=== PATIENT | female | born 2005 | race Hispanic/Latino ===

== ENCOUNTER 2024-11-16 13:45 | Emergency (ER) | payer SELFPAY ==
[~2024-11-16] VITALS: Ht 157.5 cm; Wt 135.2 kg
[2024-11-16] MEDS: FAMOTIDINE 20MG VIAL IV STA (14:23)
[2024-11-16] MEDS: LACTATED RINGERS 1000ML 1,000 ML IV ONE (14:23)
[2024-11-16] MEDS: ondanSETRON 4MG INJ IVP STA (14:23)
[2024-11-16 14:31] LABS: BASOPHILS # (AUTO) 0.02 K/uL (0.00-0.20); BASOPHILS % (AUTO) 0.2 % (0.0-5.0); EOSINOPHILS # (AUTO) 0.07 K/uL (0.00-0.70); EOSINOPHILS % (AUTO) 0.8 % (0.0-8.0); HEMATOCRIT 41.3 % (36-48); IMMATURE GRANULOCYTE ABSOLUTE 0.03 K/uL (0-1); LYMPHOCYTES # (AUTO) 2.2 K/uL (1.0-4.8); LYMPHOCYTES % (AUTO) 25.1 % (21.0-51.0); MEAN CORPUSCULAR HEMOGLOBIN 29.8 pg (27.0-33.0); MEAN CORPUSCULAR HGB CONC 34.4 g/dL (32.0-36.0); MEAN CORPUSCULAR VOLUME 86.8 fL (80-100); MONOCYTES # (AUTO) 0.8 K/uL (0.1-1.0); MONOCYTES % (AUTO) 9.1 % (3.0-13.0); NEUTROPHILS # (AUTO) 5.6 K/uL (1.8-7.7); NEUTROPHILS % (AUTO) 64.5 % (40.0-77.0); PLATELET COUNT (AUTO) 254 K/uL (130-400); RED BLOOD CELL COUNT(AUTO) 4.76 MIL/uL (4.00-5.50); RED CELL DISTRIBUTION WIDTH 11.6 % (11.0-15.5); WHITE BLOOD COUNT (AUTO) 8.7 K/uL (4.8-10.8)
[2024-11-16 14:43] LABS: CREATININE 0.8 mg/dL (0.5-1.0)
[2024-11-16 14:47] LABS: ALBUMIN 3.6 g/dL (3.5-5.0); BILIRUBIN,DIRECT 0.1 mg/dL (0.0-0.3); BILIRUBIN,TOTAL 0.4 mg/dL (0.2-1.0); TOTAL PROTEIN, SERUM 7.2 g/dL (6.0-8.3)
[2024-11-16 15:01] LABS: APPEARANCE,URINE CLEAR (CLEAR); BILIRUBIN,URINE NEGATIVE (NEGATIVE); COLOR,URINE YELLOW (YELLOW); GLUCOSE, URINE (UA) NEGATIVE (NEGATIVE); KETONES,URINE 5 mg/dL (NEGATIVE); LEUKOCYTE ESTERASE ,URINE NEGATIVE Leu/uL (NEGATIVE); NITRATE,URINE NEGATIVE (NEGATIVE); OCCULT BLOOD,URINE NEGATIVE (NEGATIVE); PH,URINE 5.5 (5.0-8.0); PROTEIN,URINE 20 mg/dL (NEGATIVE)
[2024-11-16 15:03] LABS: ADD UA MICROSCOPIC YES; HCG,QUALITATIVE URINE NEGATIVE (NEGATIVE)
[2024-11-16 15:06] LABS: BACTERIA,URINE RARE /HPF (None Seen); MUCUS,URINE FEW LPF (None Seen); SQUAMOUS EPITHELIAL CELL,UR FEW /HPF (0-2); YEAST,URINE BUDDING RARE /HPF (None Seen)
[2024-11-16] MEDS ORDERED: FAMO-136 PO (15:55)
[2024-11-16] MEDS ORDERED: ONDA-243 PO (15:55)
--- NOTE | 2024-11-16 15:57 | ERN ---
ED Note History of Present Illness Stated Complaint: ABD PAIN Chief Complaint: Abdominal Pain Time Seen by MD: 13:56 Time Seen by Midlevel: 14:00 Dictation: 18-YEAR-OLD FEMALE WITH NO PAST MEDICAL HISTORY COMING IN WITH COMPLAINTS OF NAUSEA, VOMITING AND DIARRHEA ONSET LAST NIGHT AT 10. PATIENT STATES SHE HAD A BURGER THAT TASTED FUNNY AND SYMPTOMS BEGAN AFTER THAT. LMP TWO WEEKS AGO. Allergies: Coded Allergies: No Known Drug Allergies (Unverified Allergy, Intermediate, 11/16/24) Home Meds Active Scripts Famotidine (Pepcid) 20 Mg Tablet, 1 TAB PO ONCE for 30 Days, #60 TAB 0 Refills Prov:BREENLIZLINDA EDM OPERATOR 11/16/24 Ondansetron (Ondansetron Odt) 4 Mg Tab.rapdis, 4 MG PO Q6HPRN PRN for nausea for 3 Days, #12 TAB 0 Refills Prov:BREENLIZLINDA EDM OPERATOR 11/16/24 Past Medical History Past Medical History: No Pertinent History Surgical History: None LMP: Nov 02, 2024 : 1 Para: 0 Aborts: 1 Review of System Dictation CONSTITUTIONAL: NEGATIVE FOR FEVER,CHILLS, AND WEIGHT LOSS EYES: NEGATIVE FOR INJURY, PAIN,REDNESS, AND DISCHARGE ENT: NEGATIVE FOR INJURY,PAIN OR SWELLING CARDIOVASCULAR: NEGATIVE FOR CHEST PAIN, PALPITATIONS, AND EDEMA RESPIRATORY: NEGATIVE FOR SHORTNESS OF BREATH, COUGH, AND WHEEZING, ABDOMEN/GI: POSITIVE FOR ABDOMINAL PAIN, NAUSEA, VOMITING DIARRHEA, NONBLOODY BACK: NEGATIVE FOR INJURY AND PAIN : NEGATIVE FOR INJURY, BLEEDING AND DISCHARGE MS/EXTREMITY: NEGATIVE FOR INJURY AND DEFORMITY SKIN: NEGATIVE FOR RASH, AND DISCOLORATION NEURO: NEGATIVE FOR HEADACHE, WEAKNESS, NUMBNESS, TINGLING, AND SEIZURE PSYCH: NEGATIVE FOR SUICIDE IDEATION, HOMICIDAL IDEATION, AND HALLUCINATIONS Review of Systems: was completed Initial Vital Sign VS Vital Signs Date Time Temp Pulse Resp B/P (MAP) Pulse Ox O2 Delivery O2 Flow Rate FiO2 11/16/24 13:45 98.6 110 20 132/88 99 Room Air 0 11/16/24 16:28 21 Physical Exam Dictation GENERAL: AWAKE, ALERT, NAD HEAD/FACE: NORMOCEPHALIC, ATRAUMATIC EYES: PERRL, EOMI, VISION AT BASELINE ENT: ORAL CAVITY CLEAR, TMS CLEAR, NO SIGNS OF INFECTION NECK: TRACHEA MIDLINE, SUPPLE, NO NUCHAL RIGIDITY CARDIOVASCULAR: RRR, NORMAL S1/S2, NO MRGS, NO JVD RESPIRATORY: CTAB, NO RESPIRATORY DISTRESS, NO RALES OR WHEEZES ABDOMEN: SOFT, NON-TENDER, NON-DISTENDED, NORMAL BOWEL SOUNDS, NO GUARDING OR REBOUND. SKIN: WARM, DRY, NORMAL TURGOR, NO RASH MS/EXTREMITY: PULSES EQUAL, NO CYANOSIS, NEUROVASCULAR INTACT, FROM NEURO: COAX4, GCS 15, STRENGTH 5/5, CN 2-12 INTACT, NORMAL CEREBELLAR EXAM, NORMAL GAIT, PSYCH: NORMAL BEHAVIOR, MOOD, AND AFFECT NORMAL Results (Laboratory/Radiology) Laboratory/Radiology Laboratory Tests Test 11/16/24 13:57 11/16/24 14:17 Urine Color YELLOW (YELLOW) Urine Appearance CLEAR (CLEAR) Urine pH 5.5 (5.0-8.0) Urine Specific [place] 1.032 (1.001-1.031) Urine Protein 20 mg/dL (NEGATIVE) H Urine Glucose (UA) NEGATIVE mg/dL (NEGATIVE) Urine Ketones 5 mg/dL (NEGATIVE) H Urine Occult Blood NEGATIVE (NEGATIVE) Urine Nitrate NEGATIVE (NEGATIVE) Urine Bilirubin NEGATIVE mg/dL (NEGATIVE) Urine Urobilinogen 2.0 mg/dL (0.2-1.0) H Urine Leukocyte Esterase NEGATIVE Juliane/uL Urine RBC 2-5 /HPF (0-1) H Urine WBC 6-10 /HPF (0-1) H Urine Squamous Epithelial Cells FEW /HPF (0-2) Urine Bacteria RARE /HPF (None Seen) Urine Yeast RARE /HPF (None Seen) Urine HCG, Qualitative NEGATIVE (NEGATIVE) White Blood Count 8.7 K/uL (4.8-10.8) Red Blood Count 4.76 MIL/uL (4.00-5.50) Hemoglobin 14.2 g/dL (12.0-16.0) Hematocrit 41.3 % (36-48) Mean Corpuscular Volume 86.8 fL (80-100) Mean Corpuscular Hemoglobin 29.8 pg (27.0-33.0) Mean Corpuscular Hemoglobin Concent 34.4 g/dL (32.0-36.0) Red Cell Distribution Width 11.6 % (11.0-15.5) Platelet Count 254 K/uL (130-400) Mean Platelet Volume 10.7 fL (7.5-10.5) H Immature Granulocyte % (Auto) 0.3 % (0-1) Neutrophils (%) (Auto) 64.5 % (40.0-77.0) Lymphocytes (%) (Auto) 25.1 % (21.0-51.0) Monocytes (%) (Auto) 9.1 % (3.0-13.0) Eosinophils (%) (Auto) 0.8 % (0.0-8.0) Basophils (%) (Auto) 0.2 % (0.0-5.0) Neutrophils # (Auto) 5.6 K/uL (1.8-7.7) Lymphocytes # (Auto) 2.2 K/uL (1.0-4.8) Monocytes # (Auto) 0.8 K/uL (0.1-1.0) Eosinophils # (Auto) 0.07 K/uL (0.00-0.70) Basophils # (Auto) 0.02 K/uL (0.00-0.20) Absolute Immature Granulocyte (auto 0.03 K/uL (0-1) Nucleated Red Blood Cells 0.0 % (0.0-0.19) Sodium Level 144 mmol/L (136-145) Potassium Level 4.0 mmol/L (3.5-5.1) Chloride Level 107 mmol/L (101-111) Carbon Dioxide Level 32 mmol/L (21-32) Blood Urea Nitrogen 12 mg/dL (7-18) Creatinine 0.8 mg/dL (0.5-1.0) Glomerular Filtration Rate Calc 108 mL/min (>90) Random Glucose 101 mg/dL (70-105) Total Calcium 8.8 mg/dL (8.5-10.1) Total Bilirubin 0.4 mg/dL (0.2-1.0) Direct Bilirubin 0.1 mg/dL (0.0-0.3) Aspartate Amino Transf (AST/SGOT) 21 U/L (10-37) Alanine Aminotransferase (ALT/SGPT) 35 U/L (12-78) Alkaline Phosphatase 111 U/L (50-136) Total Creatine Kinase 65 U/L (21-232) Total Protein 7.2 g/dL (6.0-8.3) Albumin 3.6 g/dL (3.5-5.0) Lipase 28 U/L (16-77) Labs Reviewed?: Yes ED Course ED Course Orders Procedure Category Date Status Time Urinalysis Profile LAB 11/16/24 Complete 14:05 ,Urine Test LAB 11/16/24 Complete 14:05 Cbc With Differential LAB 11/16/24 Complete 14:11 Basic Metabolic Panel LAB 11/16/24 Complete 14:11 Lipase LAB 11/16/24 Complete 14:11 Hepatic Function Panel LAB 11/16/24 Complete 14:11 Creatine Kinase, Total LAB 11/16/24 Complete 14:11 Lactated Ringers PHA 11/16/24 Complete 1000ml (Lactated 14:30 Ondansetron 4mg Inj PHA 11/16/24 Complete (Zofran 4mg Inj) 14:11 Famotidine 20mg Vial PHA 11/16/24 Complete (Pepcid 20mg Vial) 14:11 Culture Urine ANDRAE 11/16/24 In Process 15:06 Current Medications Medications (Trade) Dose Ordered Sig/Joesph Route PRN Reason Start Time Stop Time Status Last Admin Dose Admin Famotidine (Pepcid 20mg Vial) 20 mg ONCE STAT IV 11/16/24 14:11 11/16/24 14:13 DC 11/16/24 14:23 Lactated Ringer's 1,000 ml @ 1,000 mls/hr Q1H ONCE IV 11/16/24 14:30 11/16/24 15:29 DC 11/16/24 14:23 Ondansetron HCl (zoFRAN 4MG INJ) 4 mg ONCE STAT IVP 11/16/24 14:11 11/16/24 14:13 DC 11/16/24 14:23 Vital Signs Date Time Temp Pulse Resp B/P (MAP) Pulse Ox O2 Delivery O2 Flow Rate FiO2 11/16/24 16:28 98.8 78 18 122/69 98 Room Air* 0 21 11/16/24 13:45 98.6 110 20 132/88 99 Room Air 0 Medical Decision Making MDM MDM: 18-YEAR-OLD FEMALE WITH NO PAST MEDICAL HISTORY COMING IN WITH COMPLAINTS OF NAUSEA, VOMITING AND DIARRHEA ONSET LAST NIGHT AT 10. PATIENT STATES SHE HAD A BURGER THAT TASTED FUNNY AND SYMPTOMS BEGAN AFTER THAT. LMP TWO WEEKS AGO. BLOOD WORK UNREMARKABLE. PATIENT STATES FEELS BETTER AFTER MEDICATION. DISCUSSED WITH THE PATIENT THIS IS MOST LIKELY RELATED TO GASTROENTERITIS. DISCUSSED THAT SHE NEEDS TO RETURN TO THE HOSPITAL IF SHE DEVELOPS ANY FEVERS AND UNABLE TO KEEP ANY FOOD OR LIQUID DOWN DESPITE THE NAUSEA MEDICATION OTHERWISE FOLLOW UP WITH PCP. PATIENT VERBALIZED UNDERSTANDING, ANSWERED ALL QUESTIONS. DIFFERENTIAL DIAGNOSIS: PANCREATITIS, CHOLECYSTITIS, GASTROENTERITIS RATIONALE: TESTS CONSIDERED AND ORDERED SECONDARY TO SHARED DECISION MAKING INCLUDE: PREVIOUS OUTSIDE RECORDS REVIEWED: OLD ER VISITS. RISK OF COMPLICATION AND/OR MORBIDITY OR MORTALITY OF PATIENT MANAGEMENT: NONE MEDICATIONS-PER MEDICATION RECONCILIATION NEED FOR HOSPITALIZATION: PATIENT DOES NOT MEET CRITERIA FOR HOSPITALIZATION. NEED FOR EMERGENCY MAJOR/MINOR SURGERY: NO THERE ARE NO SOCIAL CONCERNS WITH THIS PATIENT. PRESCRIPTION DRUG MANAGEMENT PRESCRIPTIONS WILL INCLUDE SYMPTOMATIC CARE PATIENT'S PRIOR EXTERNAL MEDICAL RECORDS FROM OTHER ER VISITS WERE REVIEWED BY ME INDICATED. PRIOR TESTING AND RESULTS FROM PREVIOUS VISITS WERE REVIEWED. PRIOR TESTS WERE TAKEN INTO ACCOUNT WITH MEDICAL DECISION MAKING AND RESOURCE UTILIZATION, INDEPENDENT HISTORIAN/HISTORIANS WERE USED TO OBTAIN COMPLETE MEDICAL HISTORY. I INDEPENDENTLY INTERPRETED THE TEST THAT WERE PERFORMED, RESULTS WERE REVIEWED BY ME AND CONSIDERED FINDINGS ON RADIOLOGY IF ORDERED. MEDICAL MANAGEMENT AND EXAMINATION INTERPRETATION DISCUSSIONS WERE HAD BY ME WITH OTHER QUALIFIED HEALTHCARE PROFESSIONALS INDICATED FOR THE PATIENT'S CARE. DX & DISP Disposition: Discharge Departure Impression: Primary Impression: Enteritis Condition: Stable Scripts Famotidine (Pepcid) 20 Mg Tablet 1 TAB PO ONCE for 30 Days, #60 TAB 0 Refills Prov: LINDA BREEN NP 11/16/24 Ondansetron (Ondansetron Odt) 4 Mg Tab.rapdis 4 MG PO Q6HPRN PRN for nausea for 3 Days, #12 TAB 0 Refills Prov: LINDA BREEN NP 11/16/24 Additional Instructions: YOU CAN TAKE TYLENOL OR MOTRIN FOR YOUR ABDOMINAL PAIN. TAKE ANTI NAUSEA MEDICATION, IF YOU AND UNABLE TO KEEP ANY FLUIDS DOWN DESPITE THE MEDICATION CO ME BACK TO THE EMERGENCY ROOM. OTHERWISE FOLLOW UP WITH YOUR PRIMARY DOCTOR IN 1-2 DAYS. Referrals: SELF,REFERRAL (PCP) Time of Disposition: 15:55 I have reviewed the case, and I agree with, Diagnosis and Plan LINDA BREEN NP November 16, 2024 15:57 KRAIG GOOD DO November 17, 2024 10:05
[2024-11-16 16:28] VITALS: BP 122/69; PULSE 78; RESP 18; TEMP 98.7; O2SAT 98
== END 2024-11-16 16:35 | disposition home or self-care (01) ==
LOC: EDH 13:45
DX: K52.9 Noninfective gastroenteritis and colitis, unspecified (principal); Z79.899 Other long term (current) drug therapy
CPT/HCPCS: 99284; 96374; 96361; 96375; 82550; 80076; 80048; 83690; 85025; 87086; 81001; 81025; 36415; J7120; J3490; J2405